=== PATIENT | female | born 1990 | race Two or more races ===

== ENCOUNTER 2017-12-02 20:18 | Emergency (ER) | payer SELFPAY ==
[~2017-12-02] VITALS: Ht 152.4 cm; Wt 72.6 kg
[2017-12-02] MEDS: fentaNYL CITRATE 100 MCG/2 ML VL IV ONE ×2 (21:43→22:03)
[2017-12-02] MEDS: KETOROLAC TROMETH 30 MG/ML 1ML VIAL IV ONE ×2 (21:43→22:04)
[2017-12-02 22:05] VITALS: BP 127/97
== END 2017-12-02 22:30 | disposition home or self-care (01) ==
LOC: ER 20:18
DX: S02.2XXA Fracture of nasal bones, initial encounter for closed fracture (principal); F12.10 Cannabis abuse, uncomplicated; Y08.89XA Assault by other specified means, initial encounter; Y93.89 Activity, other specified; Y99.8 Other external cause status; Y92.89 Other specified places as the place of occurrence of the external cause
CPT/HCPCS: 70486; 96374; 96375; 99284; J1885; J3010